=== PATIENT | female | born 1985 | race Caucasian/White ===

== ENCOUNTER → 2018-08-20 | Outpatient (CLI) | payer SELFPAY | LOC: LAB FS 14:37 | PROVIDERS: ATTEND Family Medicine | DX: O92.6 Galactorrhea (principal) | CPT/HCPCS: 36415; 84146; 84443 ==

== ENCOUNTER → 2019-01-04 | Outpatient (CLI) | payer BC ==
[2019-01-04 08:46] LABS: ALANINE AMINOTRANSFERASE 13 U/L (0-55); ALKALINE PHOSPHATASE 40 U/L (40-136); BILIRUBIN,TOTAL 0.2 MG/DL (0.1-1.0); BUN/CREATININE RATIO 10; CARBON DIOXIDE 26 MMOL/L (21-32); CHLORIDE 103 MMOL/L (98-107); CREATININE SERUM 0.78 MG/DL (0.60-1.30); GFR ESTIMATED > 60; GLUCOSE 87 MG/DL (70-105); POTASSIUM 4.3 MMOL/L (3.6-5.0); SODIUM 140 MMOL/L (135-145); TOTAL PROTEIN 7.5 GM/DL (6.4-8.2)
[2019-01-04 08:47] LABS: ALBUMIN 4.5 GM/DL (3.2-4.5)
[2019-01-04 14:43] LABS: CHOLESTEROL 157 MG/DL (< 200); HDL CHOLESTEROL 42 MG/DL (40-60); TRIGLYCERIDES 64 MG/DL (<150); VLDL CHOLESTEROL 13 MG/DL (5-40)
== END ==
LOC: LAB FS 08:10
PROVIDERS: ATTEND Family Medicine
DX: Z00.00 Encounter for general adult medical examination without abnormal findings (principal)
CPT/HCPCS: 36415; 80053; 80061

== ENCOUNTER → 2019-12-03 | Outpatient (CLI) | payer BC ==
[2019-12-03 12:19] LABS: HEMATOCRIT 40 % (35-52); HEMOGLOBIN 13.4 G/DL (11.5-16.0); LYMPHOCYTES % (AUTO) 41 % (12-44); MEAN CORPUSCULAR HEMOGLOBIN 30 PG (25-34); MEAN CORPUSCULAR HGB CONC 34 G/DL (32-36); MEAN CORPUSCULAR VOLUME 90 FL (80-99); MEAN PLATELET VOLUME 10.8 FL (7.4-10.4); MONOCYTES % (AUTO) 10 % (0-12); NEUTROPHILS % (AUTO) 45 % (42-75); PLATELET COUNT 279 10^3/uL (130-400); RED CELL DISTRIBUTION WIDTH 12.8 % (10.0-14.5); WHITE BLOOD COUNT 8.9 10^3/uL (4.3-11.0)
[2019-12-03 12:20] LABS: BASOPHILS # (AUTO) 0.1 10^3/uL (0.0-0.1); BASOPHILS % (AUTO) 1 % (0-10); EOSINOPHILS # (AUTO) 0.3 10^3/uL (0.0-0.3); EOSINOPHILS % (AUTO) 3 % (0-10); LYMPHOCYTES # (AUTO) 3.7 X 10^3 (1.0-4.0); MONOCYTES # (AUTO) 0.9 X 10^3 (0.0-1.0); SODIUM 139 MMOL/L (135-145)
[2019-12-03 12:21] LABS: ALANINE AMINOTRANSFERASE 15 U/L (0-55); ALBUMIN 4.5 GM/DL (3.2-4.5); ALKALINE PHOSPHATASE 50 U/L (40-136); BILIRUBIN,TOTAL 0.4 MG/DL (0.1-1.0); BUN/CREATININE RATIO 12; CALCIUM 9.1 MG/DL (8.5-10.1); CARBON DIOXIDE 27 MMOL/L (21-32); CHLORIDE 102 MMOL/L (98-107); CREATININE SERUM 0.75 MG/DL (0.60-1.30); GFR ESTIMATED > 60; GLUCOSE 99 MG/DL (70-105); TOTAL PROTEIN 7.5 GM/DL (6.4-8.2)
== END ==
LOC: LAB FS 11:16
PROVIDERS: ATTEND Family Medicine
DX: Z00.00 Encounter for general adult medical examination without abnormal findings (principal)
CPT/HCPCS: 36415; 80053; 85025

== ENCOUNTER 2020-01-26 05:52 | Outpatient (RCR) | payer BC ==
[~2020-01-26] VITALS: Ht 172.7 cm; Wt 68.2 kg
[2020-01-26] MEDS ORDERED: MULT-141 PO (12:54)
== END 2020-01-26 12:55 | disposition home or self-care (01) ==
LOC: PREOP 05:52
PROVIDERS: ATTEND Surgery
DX: Z01.818 Encounter for other preprocedural examination (principal); K80.20 Calculus of gallbladder without cholecystitis without obstruction

== ENCOUNTER 2020-02-02 08:35 | Day surgery (SDC) | payer BC, OTHER ==
[2020-02-02] VITALS (12 sets, daily range): BP systolic 92–141; BP diastolic 61–92
[~2020-02-02] VITALS: Ht 172.7 cm; Wt 68.2 kg
[~2020-02-02 08:35] MED LIST: MULT-141 PO
--- OUTSIDE RECORDS SUMMARY | 2020-02-02 08:39 | XMS REPORT | Continuity of Care Document ---
Author Organization Unknown Address Unknown Phone Unavailable Allergies Active Description Code Type Severity Reaction Onset Reported/Identified Relationship to Patient Clinical Status Yes No Known Drug Allergies [id number] Drug Allergy Unknown N/A 01/26/2020 Medications There is no data. Problems Date Dx Coded Attending Type Code Diagnosis Diagnosed By 05/21/1254 JENI MERCEDES MD, Ot K80.20 CALCULUS OF GALLBLADDER W/O CHOLECYSTITI 05/21/1254 JENI MERCEDES MD Ot Z01.81 8 ENCOUNTER FOR OTHER PREPROCEDURAL EXAMIN 08/23/2018 GONZALO NAGY MD Ot O92 .6 GALACTORRHEA 08/24/2018 GONZALO NAGY MD Ot O92 .6 GALACTORRHEA 09/02/2018 GONZALO NAGY MD Ot O92 .6 GALACTORRHEA 09/20/2018 GONZALO NAGY MD Ot O92 .6 GALACTORRHEA 10/11/2018 GONZALO NAGY MD Ot O92 .6 GALACTORRHEA 11/01/2018 GONZALO NAGY MD Ot O92 .6 GALACTORRHEA 01/07/2019 GONZALO NAGY MD Ot Z00.00 ENCNTR FOR GENERAL ADULT MEDICAL EXAM W/ 12/07/2019 GONZALO NAGY MD Ot Z00.00 ENCNTR FOR GENERAL ADULT MEDICAL EXAM W/ 01/26/2020 JENI MERCEDES MD, Ot K80.20 CALCULUS OF GALLBLADDER W/O CHOLECYSTITI 01/26/2020 JENI MERCEDES MD Ot Z01.81 8 ENCOUNTER FOR OTHER PREPROCEDURAL EXAMIN 02/01/2020 GONZALO NAGY MD Ot O92 .6 GALACTORRHEA 02/01/2020 GONZALO NAGY MD Ot Z00.00 ENCNTR FOR GENERAL ADULT MEDICAL EXAM W/ 02/01/2020 GONZALO NAGY MD Ot Z00.00 ENCNTR FOR GENERAL ADULT MEDICAL EXAM W/ Procedures There is no data. Results Test Result Range THYROID STIMULATING HORMONE - 08/20/18 1 4:50 THYROID STIMULATING HORMONE 1.38 u[iU]/mL 0.35-4.94 Serum or plasma prolactin measurement (m ass/volume) - 08/20/18 14:50 Serum or plasma prolactin measurement (mass/volume) 6.7 % NRG Comprehensive metabolic panel - 01/04/19 08:10 Serum or plasma sodium measurement (moles/volume) 140 mmol/L 135-145 Serum or plasma potassium measurement (moles/volume) 4.3 mmol/L 3.6-5.0 Serum or plasma chloride measurement (moles/volume) 103 mmol/L 98-107 Carbon dioxide 26 mmol/L 21-32 Serum or plasma anion gap determination (moles/volume) 11 mmol/L 5-14 Serum or plasma urea nitrogen measurement (mass/volume ) 8 mg/dL 7-18 Serum or plasma creatinine measurement (mass/volume) 0.78 mg/dL 0.60-1.30 Serum or plasma urea nitrogen/creatinine mass ratio 10 NRG Serum or plasma creatinine measurement w ith calculation of estimated glomerular filtration rate > NRG Serum or plasma glucose measurement (mass/volume) 87 mg/dL 70-105 Serum or plasma calcium measurement (mass/volume) 9.0 mg/dL 8.5-10.1 Serum or plasma total bilirubin measurement (mass/volu me) 0.2 mg/dL 0.1-1.0 Serum or plasma alkaline phosphatase lynne surement (enzymatic activity/volume) 40 U/L 40-136 Serum or plasma aspartate aminotransfera se measurement (enzymatic activity/volume) 15 U/L 5-34 Serum or plasma alanine aminotransferase measurement (enzymatic activity/volume) 13 U/L 0-55 Serum or plasma protein measurement (mass/volume) 7.5 g/dL 6.4-8.2 Serum or plasma albumin measurement (mass/volume) 4.5 g/dL 3.2-4.5 CALCIUM CORRECTED 8.6 mg/dL 8.5-10.1 Lipid 1996 panel - 01/04/19 08:10 Serum or plasma triglyceride measurement (mass/volume) 64 mg/dL <150 Serum or plasma cholesterol measurement (mass/volume) 157 mg/dL < 200 Serum or plasma cholesterol in HDL measurement (mass/v olume) 42 mg/dL 40-60 Cholesterol in LDL [mass/volume] in serum or plasma by direct assay 115 mg/dL 1-129 Serum or plasma cholesterol in VLDL measurement (mass/ volume) 13 mg/dL 5-40 Encounters ACCT No. Visit Date/Time Discharge Status Pt. Type Provider Facility Loc./Unit Complaint [id number] 12/07/2019 11:30:00 12/07/2019 23:59: 59 CLS Outpatient GONZALO NAGY [facility] [id number] 01/26/2020 05:52:00 12:55:00 DIS Outpatient JENI MERCEDES MD [facility] [place] [id number] 12/03/2019 11:16:00 23:59:59 CLS Outpatient [place] [facility] [place] [id number] 01/04/2019 08:10:00 23:59:59 CLS Outpatient GONZALO NAGY MD [facility] LAB FS [id number] 08/20/2018 14:37:00 23:59:59 CLS Outpatient GONZALO NAGY MD [facility] LAB FS O92.6 [id number] 02/02/2020 08:00:00 P EN Preadmit JENI MERCEDES MD [facility] [place]
[2020-02-02] MEDS ORDERED: LACTATED RINGERS 1,000 ML IV PRN (08:47)
[2020-02-02] MEDS ORDERED: ceFAZolin 2 GM IV Premixed 50 ML IV ONE (09:00)
[2020-02-02] MEDS: LACTATED RINGERS 1,000 ML IV PRN ×2 (09:08→12:39)
--- NOTE | 2020-02-02 09:09 | Progress Note-Pre Operative ---
Pre-Operative Progress Note H&P Reviewed The H&P was reviewed, patient examined and no changes noted. Date Seen by Provider: Feb 02, 2020 Time Seen by Provider: 09:05 Date H&P Reviewed: Feb 02, 2020 Time H&P Reviewed: 09:00 Pre-Operative Diagnosis: Chronic calculous cholecystitis ANDERS DESOUZA APRN Feb 02, 2020 09:09
[2020-02-02] MEDS ORDERED: ceFAZolin 2 GM IV Premixed 50 ML ONE (09:10)
[2020-02-02] MEDS ORDERED: HYDR-4227 PO (09:11)
--- NOTE | 2020-02-02 09:12 | Discharge Inst-Surgical ---
D/C Lap Instructions-KIDO Reconcile Patient Problems Problems Reviewed?: Yes New, Converted, or Re-Newed RX: RX on Chart Follow Up Appt in 2 weeks Activity as tolerated No driving for 24 hours No driving while on pain medications Incentive Spirometry use every 2 hours while awake Regular Diet Symptoms to Report: Fever over 101 degree F, Nausea/Vomiting Infection Signs and Symptoms to report: Increased redness, Foul odor of wound, Increased drainage Bathing instructions: May shower Operative Area Clean/Dry; Keep incision clean/dry If any problems/questions: Contact your physician or go to Emergency Room ANDERS DESOUZA APRN Feb 02, 2020 09:12
[2020-02-02] MEDS ORDERED: morphine INJ 10 MG/ML 1ML (SYR OR VIAL) IVP PRN (09:15)
[2020-02-02] MEDS ORDERED: ACETAMINOPHEN 325 MG TABLET PO PRN (09:15)
[2020-02-02] MEDS ORDERED: HYDROcodone/APAP 5 MG/325 MG (LORTAB) TAB PO ONE (09:15)
[2020-02-02] MEDS ORDERED: ONDANSETRON 4 MG/2 ML (SDV) Z0FRAN IVP PRN ×2 (09:15→12:00)
[2020-02-02 09:20] LABS: BASOPHILS # (AUTO) 0.1 10^3/uL (0.0-0.1); BASOPHILS % (AUTO) 1 % (0-10); EOSINOPHILS # (AUTO) 0.2 10^3/uL (0.0-0.3); EOSINOPHILS % (AUTO) 3 % (0-10); HEMATOCRIT 41 % (35-52); HEMOGLOBIN 13.8 G/DL (11.5-16.0); LYMPHOCYTES # (AUTO) 2.9 X 10^3 (1.0-4.0); LYMPHOCYTES % (AUTO) 39 % (12-44); MEAN CORPUSCULAR HEMOGLOBIN 30 PG (25-34); MEAN CORPUSCULAR HGB CONC 34 G/DL (32-36); MEAN CORPUSCULAR VOLUME 90 FL (80-99); MEAN PLATELET VOLUME 10.8 FL (7.4-10.4); MONOCYTES # (AUTO) 0.8 X 10^3 (0.0-1.0); MONOCYTES % (AUTO) 11 % (0-12); NEUTROPHILS # (AUTO) 3.4 X 10^3 (1.8-7.8); NEUTROPHILS % (AUTO) 47 % (42-75); PLATELET COUNT 298 10^3/uL (130-400); RED CELL DISTRIBUTION WIDTH 13.1 % (10.0-14.5); WHITE BLOOD COUNT 7.3 10^3/uL (4.3-11.0)
[2020-02-02] MEDS ORDERED: BUP/EPI 0.5% 1:200,000 (MARCAINE) 10ML VIAL IJ ONE (09:22)
[2020-02-02] MEDS ORDERED: SUCCINYLCHOLINE INJ 100 MG/5 ML SYR ONE (10:42)
[2020-02-02] MEDS ORDERED: ROCURONIUM 10 MG/ML 5 ML SYRINGE IV ONE (10:42)
[2020-02-02] MEDS ORDERED: MIDAZOLAM 2 MG/2 ML (VERSED) VIAL ONE (10:42)
[2020-02-02] MEDS ORDERED: proPOfol 200 MG/20 ML (DIPRIVAN) VIAL IV ONE (10:42)
[2020-02-02] MEDS ORDERED: fentaNYL INJECTION 100 MCG/2 ML AMP ONE ×2 (10:42→11:59)
[2020-02-02] MEDS ORDERED: LIDOCAINE PF 2% 5 ML (XYLOCAINE) VIAL ONE (10:42)
[2020-02-02] MEDS ORDERED: SEVOFLURANE (ULTANE) 15 ML INHAL SOLN ONE ×4 (11:20)
[2020-02-02] MEDS ORDERED: GLYCOPYRROLATE 0.2 MG/ML (ROBINUL) 2 ML VIAL ONE (11:29)
[2020-02-02] MEDS ORDERED: NEOSTIGMINE 3 MG/3 ML VIAL ONE (11:29)
--- NOTE | 2020-02-02 11:47 | Progress Note-Post Operative ---
Post-Operative Progess Note Surgeon (s)/Fashion Merchandiser (s) Surgeon JENI MERCEDES MD Fashion Merchandiser: mitesh carmona [employer]AD [employer] MECH[employer]IC Pre-Operative Diagnosis Chronic calculous cholecystitis Post-Operative Diagnosis same Procedure & Operative Findings Date of Procedure 02/02/20 Procedure Performed/Findings laparoscopic cholecystectomy. Anesthesia Type get Estimated Blood Loss Estimated blood loss (mL): minimal Specimens/Packing Specimens Removed gallbladder JENI MERCEDES MD Feb 02, 2020 11:47
[2020-02-02] MEDS ORDERED: fentaNYL INJECTION 100 MCG/2 ML AMP IVP ONE (12:00)
[2020-02-02] MEDS ORDERED: PROMETHAZINE INJ 25 MG/ML (PHENERGAN) AMP IVP ONE (12:00)
[2020-02-02] MEDS ORDERED: MEPERIDINE (DEMEROL) INJ 50 MG/ML IVP ONE (12:00)
[2020-02-02] MEDS ORDERED: HYDROcodone/APAP 5 MG/325 MG (LORTAB) TAB ONE (13:27)
--- NOTE | 2020-02-02 14:48 | Anesthesia-General Post-Op ---
General Patient Condition Mental Status/LOC: Same as Preop Cardiovascular: Satisfactory Nausea/Vomiting: Absent Respiratory: Satisfactory Pain: Controlled Complications: Absent Post Op Complications Complications None Follow Up Care/Instructions Patient Instructions None needed. Anesthesia/Patient Condition Patient Condition Patient is doing well, no complaints, stable vital signs, no apparent adverse anesthesia problems. No complications reported per nursing. NORMAN GUTHRIE CRNA Feb 02, 2020 14:48
--- NOTE | 2020-02-02 22:07 | OPERATIVE REPORT ---
DATE OF SERVICE: 02/02/2020 ATTENDING PRIMARY CARE PHYSICIAN: Dr. Susie Dimas. PREOPERATIVE DIAGNOSIS: Symptomatic chronic calculous cholecystitis. POSTOPERATIVE DIAGNOSIS: Symptomatic chronic calculous cholecystitis. PROCEDURE: Laparoscopic cholecystectomy. SURGEON: Jeni Mercedes MD. SPA HOST: Catalino Ugarte APRN. ANESTHESIA: General endotracheal. ESTIMATED BLOOD LOSS: Minimal. FINDINGS: Multiple gallstones, no gallbladder wall thickening. DISPOSITION: The patient tolerated the procedure well. INDICATIONS: The patient is a 34-year-old female, who has had a 1-year history of abdominal bloating in the epigastric region after eating meals as well as pain in the right upper abdominal quadrant with associated nausea. She states that this was initially mild; however, has become more frequent as well as more severe in nature. An ultrasound was performed, which did show multiple gallstones. DESCRIPTION OF PROCEDURE: The patient was brought to the operating room, laid supine on the table. After adequate IV pain and sedative medications and general endotracheal intubation, the abdomen was prepped and draped in a standard surgical fashion. A 0.5% Marcaine with epinephrine was used to anesthetize the overlying skin in the left upper abdominal quadrant. A small transverse skin incision made using 15 blade. An 0 silk suture was applied to the medial aspect of incision for retraction and a Veress needle inserted with low opening pressure of 0 mmHg. The abdomen was then insufflated to 15 mmHg pressure. The Veress needle removed and a 5 mm XL trocar placed followed by a 5 mm 45-degree angle laparoscope visualizing the peritoneal cavity. A 4-quadrant abdominal exploration was performed. There was no gallbladder wall thickening. What was visualized the liver, stomach, omentum appeared normal. Under direct visualization, we then proceeded to place a supraumbilical 10 mm port after the skin and peritoneal lining were anesthetized using 0.5% Marcaine with epinephrine and a transverse skin incision made using a 15 blade. In a similar manner, a right upper abdominal quadrant 5 mm port was placed. The patient was then placed in reverse Trendelenburg position as well as plane right side up, left side down. The fundus of the gallbladder was retracted anteriorly and superiorly. The hepatoduodenal ligament was then opened using cautery as well as blunt dissection using the hook instrument. The entire critical view of safety was identified including the triangle of Calot as well as the cystic duct and artery as the only two structures going into the gallbladder as well as the cystic plate behind the proximal gallbladder. A timeout was then taken and the cystic duct and artery were then clipped proximally, distally and cut with EndoShears. The gallbladder was then dissected off the liver bed using electrocautery and hook instrument with visualization of good hemostasis as well as no leaking ducts of Luschka. The gallbladder was removed through the 10 mm port site using an EndoCatch bag. The 10 mm port site fascia and peritoneum were then closed under direct visualization using a Toby-Denzel device and an 0 Vicryl suture. The abdomen was desufflated and remaining ports removed. All skin incisions were closed using 4-0 Monocryl running subcuticular sutures. Wounds were then cleaned and covered with Dermabond. The patient tolerated the procedure well. We will start IV normal pain medication as well as a clear liquid diet. Once she is tolerating clears, has good pain control with oral pain medications, is ambulating well, we will discharge her home. Her only restriction will be no heavy lifting or exertion for the next two weeks. Job ID: [id number] DocumentID: [id number] Dictated Date: 02/02/2020 11:49:48 Guest Relations Agent Date: 02/02/2020 22:07:06 Dictated By: JENI MERCEDES MD
== END 2020-02-02 14:50 | disposition home or self-care (01) ==
LOC: SDC 08:35
PROVIDERS: ATTEND Surgery
DX: K80.10 Calculus of gallbladder with chronic cholecystitis without obstruction (principal); Z11.2 Encounter for screening for other bacterial diseases
CPT/HCPCS: 36415; 84703; 85025; 87081; 88304

== ENCOUNTER → 2021-02-06 | Outpatient (CLI) | payer OTHER ==
[~2021-02-06] MED LIST changes: +HYDR-4227 PO; +IOHEXOL 300 MG/ML 50 ML (OMNIPAQUE 300) VIAL IV ONE
--- NOTE | 2021-02-06 11:21 | Diagnostic Imaging Report ---
INDICATION: Anovulation. TECHNIQUE: Hysterosalpingography was performed by Dr. Kan. Fluoroscopy was provided. 11 seconds of fluoroscopic time was utilized. A single image was obtained. Images demonstrate contrast within the endocervical canal. There appears to be some intravasation with opacification of multiple venous structures. IMPRESSION: Fluoroscopy during HSG. Dictated by: Dictated on workstation # [id number]
--- NOTE | 2021-02-06 11:38 | OPERATIVE REPORT ---
DATE OF SERVICE: PROCEDURE: Hysterosalpingogram. INDICATIONS FOR PROCEDURE: This patient was a consultation from Dr. Dimas for hysterosalpingogram due to history of infertility and concerns for tubal patency. I discussed with the patient the procedure in detail prior to her arrival at the hospital and expectations of cramping and discomfort with dye infusion. The patient demonstrated understanding in her preprocedural visit. DESCRIPTION OF PROCEDURE: Once arriving in the room, fluoroscopy was set up and the patient was on the procedural bed. I began by placing Graves speculum into the patient's vagina. The vagina was then prepped using Betadine solution. It was grasped at 12 o'clock position using a single tooth tenaculum. I then introduced a hysterosalpingogram intrauterine catheter into the uterus and deployed a securing balloon around the cervix. I then removed the Graves speculum and the single tooth tenaculum. A still x-ray is performed to ensure we have an adequate positioning for evaluation. I then began fluoroscopy and inject Isovue 300 contrast through the intrauterine catheter. The uterine cavity appears without defect. The right fallopian tube appears to have patency with dye being noted at the distal ampullary portion spilling into the peritoneal cavity. The left fallopian tube has a delayed fill response, questionable patency at the distal ampullary portion after which I removed the catheter from the patient as well after the balloon has deflated. The patient tolerated the procedure well and left to get dressed in the room after I completed the procedure with her present. Job ID: [id number] DocumentID: [id number] Dictated Date: 02/06/2021 10:37:02 Leg Assembler Date: 02/06/2021 11:38:33 Dictated By: MARCELA LEAVITT DO
== END ==
LOC: RAD 09:30
PROVIDERS: ATTEND Obstetrics & Gynecology
DX: N97.0 Female infertility associated with anovulation (principal)
CPT/HCPCS: 58340; 74740